=== PATIENT | male | born 1985 | race Caucasian/White ===

== ENCOUNTER → 2017-09-24 | Outpatient (CLI) | payer OTHER | LOC: COL.RAD 12:19 | DX: S43.401A Unspecified sprain of right shoulder joint, initial encounter (principal); M75.91 Shoulder lesion, unspecified, right shoulder; M19.011 Primary osteoarthritis, right shoulder ==

== ENCOUNTER → 2017-12-14 | Outpatient (CLI) | payer OTHER | LOC: COL.RAD 12:32 | DX: G43.709 Chronic migraine without aura, not intractable, without status migrainosus (principal) ==